=== PATIENT | female | born 1970 | race Caucasian/White ===

== ENCOUNTER 2021-08-11 08:15 | Outpatient (CLI) | payer BC | END 2021-08-11 08:16 | disposition home or self-care (01) | LOC: CSHMAMMO 08:15 | PROVIDERS: ATTEND Obstetrics & Gynecology | DX: Z12.31 Encounter for screening mammogram for malignant neoplasm of breast (principal); Z91.89 Other specified personal risk factors, not elsewhere classified | CPT/HCPCS: 77063; 77067 ==

== ENCOUNTER 2023-09-19 09:21 | Outpatient (CLI) | payer BC | END 2023-09-19 09:22 | disposition home or self-care (01) | LOC: CSHCT 09:21 | PROVIDERS: ATTEND Physician Assistant Medical | DX: R10.13 Epigastric pain (principal); K76.9 Liver disease, unspecified; N28.9 Disorder of kidney and ureter, unspecified; N85.8 Other specified noninflammatory disorders of uterus | CPT/HCPCS: 74177 ==